=== PATIENT | female | born 1940 | race Caucasian/White ===

== ENCOUNTER 2017-05-17 17:55 | Emergency (ER) | payer MEDICARE ==
[~2017-05-17] VITALS: Ht 154.9 cm; Wt 90.9 kg
[~2017-05-17 17:55] MED LIST: ACET-171 PO; ASPI-973 PO; Bisacodyl RECTAL; CALC500T53 PO; CHOL100045 PO; DOCU-41 PO; HYDR25TA4 PO; LISI10TA PO; OMEP40CA36 PO; OXYC-530 PO; TRAM50TA2 PO
[2017-05-17 18:06] VITALS: BP 121/72; PULSE 84; RESP 16; O2SAT 96
--- NOTE | 2017-05-17 18:36 | ED.REPORT ---
HPI-Abd Pain F 40 and Over Date of Service May 17, 2017 ED Provider: David Hu DO A 77 year old female with a history of hypertension, pneumonia, cholecystectomy and hysterectomy is referred to the ED from Urgent Care due to abdominal pain. The pain is localized in the left lower abdomen. The pt has been experiencing persistent abdominal pain and nausea for one week, though she denies flank pain , dysuria, vomiting, diarrhea or fever. Nursing Notes Stated Complaint: ABDOMINAL PAIN Chief Complaint: Female Abdominal Pain Nursing Notes Reviewed: Yes Allergies: Coded Allergies: Sulfa (Sulfonamide Antibiotics) (Verified Allergy, Unknown, unknown, ) epinephrine (Verified Adverse Reaction, Severe, rapid heart rate, 05/17/17) latex (Verified Adverse Reaction, Intermediate, rash, itching, 05/17/17) Scheduled Aspirin (Aspirin) 81 Mg Tablet 81 MG PO DAILY Calcium Carbonate (Calcium Carbonate) 200 Mg Tab.chew 1,000 MG PO TIDWM Cholecalciferol (Vitamin D3) (Vitamin D) 1,000 Unit Capsule 1,000 UNIT PO DAILY Docusate Sodium (Colace) 100 Mg Capsule 100 MG PO BID Hydrochlorothiazide (Hydrochlorothiazide) 25 Mg Tablet 25 MG PO DAILY Lisinopril (Lisinopril) 10 Mg Tablet 10 MG PO DAILY Omeprazole (Omeprazole) 40 Mg Capsule.dr 40 MG PO DAILY oxyCODONE (oxyCODONE) 5 Mg Tablet 5-10 MG PO Q4H Scheduled PRN ([Bisacodyl]) 10 MG SUPP 10 MG RECTAL DAILY PRN PRN For Constipation Acetaminophen (Acetaminophen) 500 Mg Tablet 500-1,000 MG PO Q6H PRN PRN For Fever Tramadol (Tramadol) 50 Mg Tablet 50-100 MG PO TID PRN PRN For Pain General Time Seen by MD: 18:35 Chief Complaint Abdominal pain Hx Obtained From: Patient Arrived By: Walk-in Sudden in Onset?: No Onset Occurred: 1 week ago Symptom Duration: Since onset Recent Healthcare: No recent hospitalization, Recent doctor visit Similar Sx Previous: No Past Medical History Past Medical History hypertension pneumonia heartburn incontinence chronic neck and back pain depression Past Surgical History bladder suspension bilateral knee ankle Reports: Cholecystectomy, Hysterectomy, Tonsillectomy Smoking History Never Smoker Social History Other Social History: Good social support Ambulatory Status Independent Review of Systems Constitutional: Denies: Fever Respiratory: Denies: Non-productive cough, Shortness of breath Cardiovascular: Denies: Chest pain GI: Reports: Abdominal pain, Nausea, Denies: Diarrhea, Vomiting Female: Denies: Dysuria, Flank pain Musculoskeletal: Denies: Back pain, Neck pain Complete sys rev & neg: except as marked. Skin: Denies Rash Physical Exam Vital Signs Vital Signs (First) Date Time Temp Pulse Resp B/P Pulse Ox O2 Delivery O2 Flow Rate FiO2 05/17/17 18:06 37.1 84 16 121/72 96 Room Air Initial VS: Reviewed General/Constitutional: Awake, Alert Respiratory / Chest: Atraumatic, Breath sounds NL, Breath sounds = bilat, No respiratory distress Cardiovascular: Heart rate NL, Regular rhythm, Heart sounds NL Abdomen: Atraumatic, Soft mild LLQ tenderness Back: Atraumatic, Full range of motion Head / Eyes: Atraumatic, Normocephalic, PERRL, EOMI ENT: Atraumatic, Airway patent, Mucous membranes moist Skin: Atraumatic, Color NL, No rash, Warm, Dry Neurologic: Oriented X3, Speech NL, No motor deficits, No sensory deficits Neck: Atraumatic, Supple, Full range of motion Upper Extremity / MS: Atraumatic, Full range of motion Lower Extremity / Pelvis / MS: Atraumatic, Full range of motion Psychiatric: Affect NL, Mood NL Interpretation & Diagnostics Lab Results Interpretation Result Diagram: 05/17/17 1840 05/17/17 1840 Test 05/17/17 18:40 White Blood Count 10.1th/mm3 (3.8-10.1) Red Blood Count 3.89mil/mm3 (3.90-5.20) Hemoglobin 11.7g/dL (12.0-15.6) Hematocrit 35.5% (35.0-46.0) Mean Corpuscular Volume 91.3fL (81-100) Mean Corpuscular Hemoglobin 30.1pg (27.0-35.0) Mean Corpuscular Hemoglobin Concent 33.0% (32.0-37.0) Red Cell Distribution Width 12.9% (12.3-15.4) Platelet Count 415bil/L (150-400) Neutrophils (%) (Auto) 66.1% (40-74) Lymphocytes (%) (Auto) 20.0% (14-46) Monocytes (%) (Auto) 11.2% (4-12) Eosinophils (%) (Auto) 2.2% (0-5) Basophils (%) (Auto) 0.4% (0-3) Hold Purple Top Tube Received (Received) Prothrombin Time 10.4sec (8.1-12.5) Prothromb Time International Ratio 0.97ratio Hold Blue Top Tube Received (Received) Sodium Level 136mEq/L (134-144) Potassium Level 4.1mEq/L (3.5-5.2) Chloride Level 98mEq/L (97-108) Carbon Dioxide Level 27mmol/L (18-29) Blood Urea Nitrogen 25mg/dL (8-27) Creatinine 0.76mg/dL (0.57-1.00) Estimat Glomerular Filtration Rate 105mL/min (>59) Glucose Level 126mg/dL (60-99) Lactic Acid Level 1.2mmol/L (0.4-2.0) Calcium Level 9.5mg/dL (8.5-10.1) Total Bilirubin 0.2mg/dL (0.0-1.2) Aspartate Amino Transf (AST/SGOT) 20U/L (0-50) Alanine Aminotransferase (ALT/SGPT) 14U/L (0-32) Alkaline Phosphatase 84U/L (25-165) Total Protein 7.2g/dL (6.4-8.4) Albumin 4.0g/dL (3.4-5.0) Lipase 16U/L (13-60) Hold [place] Top Tube Received (Received) Hold [place] Top Tube Received (Received) ECG Interpretation ECG Interpretation: normal sinus rhythm with a rate of 75 probable LVH Time: 19:51 Interpreted by: ED physician CT Abd / Pelvis Interpretation IMPRESSION: 1. Sigmoid colon diverticulosis, without acute diverticulitis. 2. Incompletely visualized 5 mm right lower lobe nodule is indeterminate. If there are no outside institution chest or abdominal CTs, consider one year followup noncontrast chest CT if patient has risk factors for lung neoplasm. 3. Large retrocardiac hiatal hernia. Dictated by: Harish Reyes M.D. on 05/17/2017 at 20:21 Approved by: Harish Reyes M.D. on 05/17/2017 at 20:31 Interpretation / Wet Read by: Interpret - Radiologist Pulse Oximetry Interpretation Pulse Oximetry Interpretation: 96% on room air Re-Eval/Medical Decision Source of Hx: Old records Re-Evaluation/Progress : Time of Eval: 21:05 Patient Status: Condition improved Re-Evaluation/Progress Note: Pt rechecked, whose pain has resolved. Her abdomen is nontender. She will be placed on a five day course of Augmentin. The pt reports that she has a history of pulmonary nodules. The diagnosis and plan for discharge are discussed. The pt understands and agrees with the plan. All questions are addressed at this time. Counseled Regarding: Diagnosis, Lab results, Need for follow-up, When/why to return to ED Discharge & Departure Primary Impression: LLQ pain Disposition: Home Discharge Condition All VS Reviewed: Yes Condition: Improved Patient Instructions: Acute Abdominal Pain (ED), Diverticulitis (ED) Additional Instructions: Your labs were reassuring. Your CT scan shorted significant diverticulosis without diverticulitis. However I suspect clinically that you have early diverticulitis. I have therefore placed you on a five day course of Augmentin. You should begin to feel much better within 2-3 days. You may stop these antibiotics if you develop diarrhea. Call your primary care physician to arrange a follow up appointment on Sunday at the latest. Return to the emergency department if you develop any new or worsening symptoms. Your CT scan also showed a pulmonary nodule that will need a follow up scan in one year. Set this up with your primary care physician. Referrals: Stewart Valdes MD (PCP) Scribe Attestation Portions of this note were transcribed by Sweetie Hendrickson. I, Dr. Hu personally performed the history, physical exam and medical decision-making; I reviewed and confirmed the accuracy of the information in the transcribed note. copies to: Stewart Valdes MD, Todd P DO May 17, 2017 18:36 SWEETIE HENDRICKSON May 17, 2017 19:04
[2017-05-17] MEDS ORDERED: 0.9% Sodium Chloride 1,000 ML IV ONE (19:00)
[2017-05-17 19:11] LABS: BASOPHILS % (AUTO) 0.4 % (0-3); EOSINOPHILS % (AUTO) 2.2 % (0-5); MONOCYTES % (AUTO) 11.2 % (4-12); Mean Corpuscular Hemoglobin 30.1 pg (27.0-35.0); Mean Corpuscular Volume 91.3 fL (81-100); NEUTROPHILS % (AUTO) 66.1 % (40-74); Platelet Count 415 bil/L (150-400)
[2017-05-17 19:16] LABS: INR 0.97 ratio
--- NOTE | 2017-05-17 20:33 | DRSVH ---
PROCEDURE: CT ABDOMEN AND PELVIS WITH CONTRAST ([id number]) INDICATIONS: 77 year-old female with left lower quadrant abdominal pain. TECHNIQUE: After the administration of intravenous contrast, 5 mm thick sections acquired from the diaphragm to the symphysis. 5 mm coronal and sagittal reformats were acquired. For radiation dose reduction, the following was used: automated exposure control, adjustment of mA and/or kV according to patient siz e. COMPARISON: None. FINDINGS: Image quality: Excellent. ABDOMEN: Lung bases: Lung bases are clear, except for incompletely visualized 5 mm nodule in the posterior ri ght lower lobe on axial image one. Heart size is normal. There is a large retrocardiac hiatal herni a. Solid organs: Liver and spleen are normal in size and enhancement. Gallbladder is surgically absent . Biliary system is non dilated. Pancreas is diffusely atrophic. No adrenal nodules. Kidneys demo nstrate normal size and enhancement, without hydronephrosis. 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 Peritoneum and bowel: Bowel loops demonstrate normal wall thickness and caliber. There is sigmoid c olon diverticulosis. No free fluid or air. Nodes and vessels: No retroperitoneal or mesenteric adenopathy by size criteria. Aorta and inferior vena cava are normal in size. Miscellaneous: No ventral hernias. PELVIS: Genitourinary: Bladder wall thickness is normal. The uterus is surgically absent. Postmenopausal ov chi are not seen, and may be atrophic or surgically absent. Miscellaneous: No inguinal hernias or adenopathy. Bones: No suspicious bony lesions. No vertebral body compression fractures. There is multilevel connie mbar spine disc degeneration, as well as levoscoliosis. There is grade one L4-L5 spondylolisthesis fr om facet joint degeneration as well. IMPRESSION: 1. Sigmoid colon diverticulosis, without acute diverticulitis. 2. Incompletely visualized 5 mm right lower lobe nodule is indeterminate. If there are no outside ins titution chest or abdominal CTs, consider one year followup noncontrast chest CT if patient has risk factors for lung neoplasm. 3. Large retrocardiac hiatal hernia. Dictated by: Harish Reyes M.D. on 05/17/2017 at 20:21 Approved by: Harish Reyes M.D. on 05/17/2017 at 20:31
[2017-05-17] MEDS ORDERED: Amoxicillin-Clav 875-125 mg Tablet PO ONE (21:00)
[2017-05-17 21:22] VITALS: BP 151/65; PULSE 74; RESP 18; O2SAT 98
== END 2017-05-17 21:24 | disposition home or self-care (01) ==
LOC: SED 17:55
DX: R10.32 Left lower quadrant pain (principal); R11.0 Nausea; I10 Essential (primary) hypertension; F32.9 Major depressive disorder, single episode, unspecified; Z90.49 Acquired absence of other specified parts of digestive tract; Z90.710 Acquired absence of both cervix and uterus; Z87.01 Personal history of pneumonia (recurrent); Z79.82 Long term (current) use of aspirin; Z88.2 Allergy status to sulfonamides; Z88.8 Allergy status to other drugs, medicaments and biological substances; Z91.040 Latex allergy status
CPT/HCPCS: 36415; 74177; 80053; 83605; 83690; 85025; 85610; 93005; 96360; 99285; J7030; Q9967